=== PATIENT | male | born 1965 | race Caucasian/White ===

== ENCOUNTER → 2020-11-27 | Outpatient (CLI) | payer BC ==
[2020-11-27 12:52] LABS: BLOOD UREA NITROGEN 18 MG/DL (7-18); CALCIUM LEVEL 9.2 MG/DL (8.5-10.1); CARBON DIOXIDE LEVEL 29 MEQ/L (21-32); CHLORIDE LEVEL 104 MEQ/L (98-107); CHOLESTEROL LEVEL 174 MG/DL (<200); CHOLESTEROL RISK RATIO 4.461 (<5); CREATININE FOR GFR 1.06 MG/DL (0.70-1.30); GLOMERULAR FILTRATION RATE > 60.0 (>56); GLUCOSE, FASTING 84 MG/DL (70-100); HDL CHOLESTEROL 39 MG/DL (>40); LDL CHOLESTEROL 88 MG/DL (<100); NON-HDL-C 135 MG/DL; POTASSIUM SERUM 3.9 MEQ/L (3.5-5.1); SODIUM LEVEL 140 MEQ/L (136-145); TRIGLYCERIDES LEVEL 235 MG/DL (<150)
[2020-11-27 13:32] LABS: HEPATITIS C VIRUS ABY INDEX < 0.0 INDEX (<0.8)
== END ==
LOC: M WUC 09:59
PROVIDERS: ATTEND Physician Assistant Medical
DX: Z13.220 Encounter for screening for lipoid disorders (principal); Z13.89 Encounter for screening for other disorder

== ENCOUNTER → 2021-06-07 | Outpatient (CLI) | payer BC | LOC: M WUC 08:29 | PROVIDERS: ATTEND Family Medicine | DX: N40.1 Benign prostatic hyperplasia with lower urinary tract symptoms (principal) ==

== ENCOUNTER → 2021-07-08 | Outpatient (CLI) | payer BC ==
[2021-07-08 10:55] LABS: PROSTATIC SPECIFIC AG MONITOR 3.23 NG/ML (< 4.00)
[2021-07-08 11:01] LABS: LUTEINIZING HORMONE 5.7 mIU/mL (1.5-9.3); PROLACTIN 6.2 NG/ML (2.1-17.7)
[2021-07-08 11:02] LABS: FOLLICLE STIMULATING HORMONE 11.2 mIU/mL (1.4-18.1)
== END ==
LOC: M WUC 08:03
PROVIDERS: ATTEND Urology
DX: N52.9 Male erectile dysfunction, unspecified (principal)

== ENCOUNTER → 2022-04-07 | Outpatient (CLI) | payer BC | LOC: M WUC 08:13 | PROVIDERS: ATTEND Urology | DX: Z12.5 Encounter for screening for malignant neoplasm of prostate (principal) ==

== ENCOUNTER → 2023-04-24 | Outpatient (CLI) | payer OTHER | LOC: M WUC 08:03 | PROVIDERS: ATTEND Urology | DX: Z12.5 Encounter for screening for malignant neoplasm of prostate (principal) ==

== ENCOUNTER → 2023-10-24 | Outpatient (REF) | payer OTHER | LOC: M LABWUC 10:00 | PROVIDERS: ATTEND Nurse Practitioner Family | DX: Z12.5 Encounter for screening for malignant neoplasm of prostate (principal) ==

== ENCOUNTER → 2024-11-22 | Outpatient (CLI) | payer OTHER | LOC: M WUC 08:07 | PROVIDERS: ATTEND Urology | DX: Z12.5 Encounter for screening for malignant neoplasm of prostate (principal) ==